=== PATIENT | female | born 1950 | race Caucasian/White ===

== ENCOUNTER 2017-07-15 10:06 | Observation (INO) | payer OTHER ==
[~2017-07-15] VITALS: Ht 167.6 cm; Wt 66.2 kg
[~2017-07-15 10:06] MED LIST: OMEP20CA74 PO; TRAM50TA2 PO
[2017-07-15 10:50] LABS: Basophils # (auto) 0.1 uL; Eosinophils # (auto) 0.1 uL; Eosinophils % (auto) 1.5 % (0.0-7.0); Hematocrit 29.7 % (36.0-46.0); Hemoglobin 10.3 g/dL (12.2-16.2); Lymphocytes # (auto) 1.7 uL; Lymphocytes % (auto) 24.2 % (10.0-50.0); Mean Corpuscular Hemoglobin 31.8 pg (28.0-32.0); Mean Corpuscular Hgb Conc. 34.7 g/dL (32.0-36.0); Mean Corpuscular Volume 91.9 fL (80.0-100.0); Mean Platelet Volume 6.7 fL (6.9-10.8); Monocytes # (auto) 0.7 uL; Monocytes % (auto) 10.1 % (0.0-12.0); Neutrophils # (auto) 4.4 uL; Neutrophils % (auto) 63.2 % (37.0-80.0); Platelet Count (auto) 188 10^3/uL (140-450); Red Cell Distribution Width 12.9 % (11.8-14.3)
[2017-07-15] MEDS ORDERED: SODIUM CHLORIDE 0.9% 1,000 ML IV ONE ×2 (11:06→12:15)
[2017-07-15] MEDS ORDERED: ONDANSETRON ODT 4 MG TAB PO ONE (11:15)
[2017-07-15 11:19] LABS: Albumin 3.2 g/dL (3.4-5.0); BUN/Creatinine Ratio 70.3; Bilirubin, Total 0.6 mg/dL (0.2-1.0); Calcium 7.6 mg/dL (8.5-10.1); Potassium 4.6 mmol/L (3.5-5.1); Total Protein 6.7 g/dL (6.4-8.2)
[2017-07-15 12:16] LABS: Magnesium 2.3 mg/dL (1.6-2.6)
[2017-07-15 12:26] LABS: B-Type Natriuretic Peptide 26.05 pg/mL (0-100)
[2017-07-15 12:49] LABS: Temperature: 23.5 C (20.0-25.0)
[2017-07-15 14:17] VITALS: BP 109/63
[2017-07-15] MEDS ORDERED: ACETAMINOPHEN 500 MG TAB PO ONE (14:22)
[2017-07-15 15:01] LABS: Urine Bilirubin Negative (Negative); Urine Blood Negative /uL (Negative); Urine Color Yellow (Yellow); Urine Glucose Normal (Normal); Urine Ketone Negative (Negative); Urine Nitrite Negative (Negative); Urine RBC 1 /hpf (0 - 4); Urine Squamous Epithelial Cell FEW /hpf (<5); Urine Urobilinogen Normal (Negative); Urine pH 7.5 (5.0-8.0)
== END 2017-07-15 14:34 | disposition home or self-care (01) | DRG 552 ==
LOC: EDBD 10:06 → ER 10:06 → OVERFLOW 11:08 → ER 14:34
PROVIDERS: ADMIT Family Medicine; ATTEND Family Medicine
DX: M54.2 Cervicalgia (principal); J44.9 Chronic obstructive pulmonary disease, unspecified; E11.9 Type 2 diabetes mellitus without complications; G89.29 Other chronic pain; M54.9 Dorsalgia, unspecified; E86.0 Dehydration; F17.210 Nicotine dependence, cigarettes, uncomplicated; I10 Essential (primary) hypertension; R11.2 Nausea with vomiting, unspecified
CPT/HCPCS: 36415; 71020; 80053; 81001; 83735; 83880; 84484; 85025; 85379; 93005; 94761; 96360; 96361; 99285; G0378; Q0162

== ENCOUNTER 2021-01-07 10:38 | Emergency (ER) | payer OTHER ==
[~2021-01-07] VITALS: Ht 167.6 cm; Wt 72.6 kg
[~2021-01-07 10:38] MED LIST changes: +ACET325T10 PO; +DOCU-94 PO; +FER325T PO; -OMEP20CA74 PO; +PANT40T PO
[2021-01-07 10:40] VITALS: BP 156/81
[2021-01-07] MEDS ORDERED: traMADol HCL 50 MG TAB PO ONE (12:15)
[2021-01-07 12:53] LABS: Basophils # (auto) 0 10 ^3/uL (0-0.2); Basophils % (auto) 0.4 % (0.0-2.0); Eosinophils # (auto) 0.1 10 ^3/uL (0-0.8); Eosinophils % (auto) 1.6 % (0.0-7.0); Hematocrit 42.4 % (36.0-46.0); Hemoglobin 14.5 g/dL (12.2-16.2); Lymphocytes # (auto) 1.6 10 ^3/uL (0.4-5.4); Lymphocytes % (auto) 25.6 % (10.0-50.0); Mean Corpuscular Hemoglobin 31.2 pg (28.0-32.0); Mean Corpuscular Hgb Conc. 34.1 g/dL (32.0-36.0); Mean Corpuscular Volume 91.5 fL (80.0-100.0); Monocytes % (auto) 16.7 % (0.0-12.0); Neutrophils # (auto) 3.4 10 ^3/uL (1.6-8.6); Neutrophils % (auto) 55.7 % (37.0-80.0); Nucleated Red Blood Cells % 0.1 %; Platelet Count (auto) 138 10^3/uL (140-450); Red Blood Cells 4.63 10^6/uL (4.0-5.20); Red Cell Distribution Width 12.6 % (11.8-14.3); White Blood Cell 6.1 10^3/uL (4.4-10.8)
[2021-01-07 12:57] LABS: Urine Bacteria NONE SEEN /hpf (None Seen); Urine Blood Negative /uL (Negative); Urine Mucus FEW (None Seen); Urine Specific Gravity 1.024 (1.001-1.035); Urine WBC 30 /hpf (0 - 5)
[2021-01-07 13:15] LABS: Albumin 4.1 g/dL (3.4-5.0); Calcium 9.2 mg/dL (8.5-10.1); Potassium 3.7 mmol/L (3.5-5.1)
[2021-01-07 13:18] LABS: BUN/Creatinine Ratio 18.6; Bilirubin, Total 0.7 mg/dL (0.2-1.0); Total Protein 7.9 g/dL (6.4-8.2)
[2021-01-07] MEDS ORDERED: IOHEXOL 300 MG/ML 100ML BOTTLE IJ ONE (13:29)
== END 2021-01-07 14:42 | disposition home or self-care (01) ==
LOC: ER 10:38
DX: S20.221A Contusion of right back wall of thorax, initial encounter (principal); S20.211A Contusion of right front wall of thorax, initial encounter; N39.0 Urinary tract infection, site not specified; R10.84 Generalized abdominal pain; M54.2 Cervicalgia; M54.5 Low back pain; J44.9 Chronic obstructive pulmonary disease, unspecified; E11.9 Type 2 diabetes mellitus without complications; I10 Essential (primary) hypertension; F17.200 Nicotine dependence, unspecified, uncomplicated; F10.20 Alcohol dependence, uncomplicated; Z79.899 Other long term (current) drug therapy; Y90.9 Presence of alcohol in blood, level not specified; W01.0XXA Fall on same level from slipping, tripping and stumbling without subsequent striking against object, initial encounter; Y93.89 Activity, other specified; Y92.091 Bathroom in other non-institutional residence as the place of occurrence of the external cause; Y99.8 Other external cause status
CPT/HCPCS: 36415; 71260; 74177; 80053; 81001; 85025; 99285; Q9967; 93005

== ENCOUNTER 2023-04-16 14:07 | Emergency (ER) | payer MEDICAID, OTHER ==
[~2023-04-16] VITALS: Ht 160 cm; Wt 85.0 kg
[~2023-04-16 14:07] MED LIST changes: +ACET-1882 PO; -ACET325T10 PO
[2023-04-16] MEDS ORDERED: KETOROLAC TROMETH 30 MG/ML 1ML VIAL IV ONE (14:30)
[2023-04-16] MEDS ORDERED: ONDANSETRON HCL 4 MG/2 ML VIAL IV ONE (14:30)
[2023-04-16 14:55] LABS: Basophils # (auto) 0 10 ^3/uL (0-0.2); Basophils % (auto) 0.3 % (0.0-2.0); Eosinophils # (auto) 0.2 10 ^3/uL (0-0.8); Eosinophils % (auto) 2.7 % (0.0-7.0); Hematocrit 46.6 % (36.0-46.0); Hemoglobin 15.9 g/dL (12.2-16.2); Lymphocytes # (auto) 1.9 10 ^3/uL (0.4-5.4); Lymphocytes % (auto) 25.8 % (10.0-50.0); Mean Corpuscular Hemoglobin 31.5 pg (28.0-32.0); Mean Corpuscular Hgb Conc. 34.2 g/dL (32.0-36.0); Mean Corpuscular Volume 91.9 fL (80.0-100.0); Monocytes # (auto) 0.7 10 ^3/uL (0-1.3); Monocytes % (auto) 9.5 % (0.0-12.0); Neutrophils # (auto) 4.5 10 ^3/uL (1.6-8.6); Neutrophils % (auto) 61.7 % (37.0-80.0); Nucleated Red Blood Cells % 0.2 %; Red Blood Cells 5.07 10^6/uL (4.0-5.20); Red Cell Distribution Width 13.7 % (11.8-14.3); White Blood Cell 7.3 10^3/uL (4.4-10.8)
[2023-04-16 15:26] LABS: Albumin 4.3 g/dL (3.4-5.0); Calcium 9.4 mg/dL (8.5-10.1); Potassium 4.4 mmol/L (3.5-5.1)
[2023-04-16 15:30] LABS: BUN/Creatinine Ratio 6.8 (10.0-20.0); Bilirubin, Total 0.7 mg/dL (0.2-1.0)
[2023-04-16] MEDS ORDERED: IOHEXOL 300 MG/ML 100ML BOTTLE IJ ONE (15:45)
[2023-04-16 18:19] VITALS: TEMP 97.7
[2023-04-16 19:52] VITALS: BP 148/80; PULSE 92; RESP 20; O2SAT 96
[2023-04-16 21:23] LABS: Urine Bacteria NONE SEEN /hpf (None Seen); Urine WBC 13 /hpf (0 - 5)
[2023-04-16 21:27] LABS: Urine Clarity CLEAR (Clear); Urine Color Straw (Yellow)
[2023-04-16 21:28] LABS: Urine Blood Negative /uL (Negative); Urine Protein, UAD Trace (Negative); Urine Urobilinogen Normal (Negative); Urine pH 6 (5.0-8.0)
[2023-04-16] MEDS ORDERED: DICY10CA PO (21:30)
== END 2023-04-16 22:00 | disposition home or self-care (01) ==
LOC: EDBD 14:07 → ER 14:10
DX: K57.30 Diverticulosis of large intestine without perforation or abscess without bleeding (principal); J44.9 Chronic obstructive pulmonary disease, unspecified; E11.9 Type 2 diabetes mellitus without complications; I10 Essential (primary) hypertension; F10.90 Alcohol use, unspecified, uncomplicated; F17.210 Nicotine dependence, cigarettes, uncomplicated; Z79.899 Other long term (current) drug therapy
CPT/HCPCS: 36415; 74177; 80053; 81001; 83605; 83690; 84484; 85025; 96374; 96375; 99285; J1885; J2405; Q9967

== ENCOUNTER 2023-11-06 18:57 | Inpatient (IN) | payer OTHER ==
[~2023-11-06] VITALS: Ht 167.6 cm; Wt 84.0 kg
[~2023-11-06 18:57] MED LIST changes: +DICY10CA PO
[2023-11-06 19:56] LABS: Basophils # (auto) 0 10 ^3/uL (0-0.2); Basophils % (auto) 0.3 % (0.0-2.0); Eosinophils # (auto) 0 10 ^3/uL (0-0.8); Hematocrit 44.7 % (36.0-46.0); Lymphocytes % (auto) 7.5 % (10.0-50.0); Mean Corpuscular Hgb Conc. 33.7 g/dL (32.0-36.0); Mean Corpuscular Volume 94.9 fL (80.0-100.0); Monocytes # (auto) 1.1 10 ^3/uL (0-1.3); Monocytes % (auto) 8.2 % (0.0-12.0); Neutrophils # (auto) 11.5 10 ^3/uL (1.6-8.6); Nucleated Red Blood Cells % 0.1 %; Red Cell Distribution Width 12.4 % (11.8-14.3); White Blood Cell 13.7 10^3/uL (4.4-10.8)
[2023-11-06 20:00] VITALS: O2SAT 92
[2023-11-06 20:12] LABS: Alanine Aminotransferase 42 U/L (7-40); Albumin 4.3 g/dL (3.2-4.8); Alkaline Phosphatase 86 U/L (46-116); Anion Gap 14 (5-15); Aspartate Aminotransferase 56 U/L (13-40); BUN/Creatinine Ratio 11.5 (10.0-20.0); Bilirubin, Total 0.6 mg/dL (0.2-1.0); Blood Urea Nitrogen 7 mg/dL (9-23); Calcium 8.7 mg/dL (8.7-10.4); Carbon Dioxide 16 mmol/L (20-30); Chloride 104 mmol/L (98-107); Glucose 94 mg/dL (74-106); Potassium 4.4 mmol/L (3.5-5.1); Sodium 134 mmol/L (136-145); Total Protein 7.3 g/dL (5.7-8.2)
[2023-11-06 20:21] LABS: INR 1.01 (0.9-1.15); Partial Thromboplastin Time 27.2 SEC (24.5-34.5); Prothrombin Time 10.6 sec (9.3-11.8)
[2023-11-06] MEDS: traMADol HCL 50 MG TAB PO ONE (20:42)
[2023-11-06] MEDS: ONDANSETRON HCL 4 MG/2 ML VIAL IV ONE (20:52)
[2023-11-06] MEDS: MORPHINE SULFATE INJ 2 MG/ml SYRG IV ONE (20:53)
[2023-11-06] MEDS: SODIUM CHLORIDE 0.9% 1,000 ML IV ONE ×2 (21:56→22:00)
[2023-11-06] MEDS: HYDROmorphone HCL 2 MG/ML VL/or syr IV ONE ×2 (22:00→23:32)
[2023-11-07] VITALS (11 sets, daily range): BP systolic 145–160; BP diastolic 69–96; PULSE 97–118; RESP 16–20; TEMP 97.7–98.4; O2SAT 92–96
[2023-11-07] MEDS ORDERED: ACETAMINOPHEN 325 MG TAB PO PRN (00:45)
[2023-11-07] MEDS: ENOXAPARIN SOD 40 MG/0.4 ML SYRINGE SC SCH (01:29)
[2023-11-07 01:31] LABS: Urine Bacteria NONE SEEN /hpf (None Seen); Urine Blood TRACE /uL (Negative); Urine Clarity Clear (Clear); Urine Color Colorless (Yellow); Urine Hyaline Cast FEW /lpf (0 - 2); Urine Protein, UAD TRACE (Negative); Urine Specific Gravity 1.015 (1.001-1.035); Urine Urobilinogen Normal (Negative); Urine WBC 1 /hpf (0 - 5); Urine pH 5.5 (5.0-8.0)
[2023-11-07] MEDS: MORPHINE SULFATE INJ 2 MG/ml SYRG IV PRN ×2 (03:10→09:59)
[2023-11-07] MEDS: SODIUM CHLORIDE 0.9% 1,000 ML IV SCH (04:53)
[2023-11-07] MEDS: ONDANSETRON HCL 4 MG/2 ML VIAL IV PRN (04:56)
[2023-11-07 05:53] LABS: Amphetamine Screen, Urine Neg (NEGATIVE)
[2023-11-07 05:54] LABS: Barbiturate Scree,Urine Neg (NEGATIVE); Benzodiazephine Screen, Urine Neg (NEGATIVE); Cannabinoid Screen, Urine Neg (NEGATIVE); Cocaine Screen, Urine Neg (NEGATIVE); Opiate Scree,Urine Neg (NEGATIVE); Phencyclidine Screen, Urine Neg (NEGATIVE)
[2023-11-07] MEDS: LORazepam 2MG/ML-1ML VIAL IV PRN (06:20)
[2023-11-07] MEDS: HYDROcodone-ACET 5/325MG TAB PO PRN (16:32)
[2023-11-07] MEDS: FOLIC ACID 1 MG, MULTIPLE VITAMIN 10 ML, MAGNESIUM SULF SDV 50% 8 MEQ, THIAMINE INJ 100... INJ SCH (17:48)
[2023-11-07] MEDS: hydrALAZINE HCL 20 MG/ML VL IV PRN (21:21)
[2023-11-08] VITALS (14 sets, daily range): BP systolic 127–173; BP diastolic 68–90; PULSE 92–111; RESP 16–20; TEMP 97.8–98.5; O2SAT 92–95
[2023-11-08 06:02] LABS: Basophils # (auto) 0 10 ^3/uL (0-0.2); Basophils % (auto) 0.4 % (0.0-2.0); Eosinophils # (auto) 0 10 ^3/uL (0-0.8); Eosinophils % (auto) 0.2 % (0.0-7.0); Hematocrit 38.5 % (36.0-46.0); Hemoglobin 13.1 g/dL (12.2-16.2); Lymphocytes # (auto) 0.9 10 ^3/uL (0.4-5.4); Lymphocytes % (auto) 10.7 % (10.0-50.0); Mean Corpuscular Hemoglobin 32.1 pg (28.0-32.0); Mean Corpuscular Hgb Conc. 33.9 g/dL (32.0-36.0); Mean Corpuscular Volume 94.8 fL (80.0-100.0); Monocytes % (auto) 12.3 % (0.0-12.0); Neutrophils # (auto) 6.1 10 ^3/uL (1.6-8.6); Neutrophils % (auto) 76.4 % (37.0-80.0); Red Blood Cells 4.06 10^6/uL (4.0-5.20)
[2023-11-08 06:04] LABS: Chloride 109 mmol/L (98-107); Potassium 3.9 mmol/L (3.5-5.1); Sodium 137 mmol/L (136-145)
[2023-11-08 06:05] LABS: Anion Gap 5 (5-15); Calcium 8.3 mg/dL (8.5-10.1); Carbon Dioxide 23 mmol/L (20-30)
[2023-11-08 06:10] LABS: BUN/Creatinine Ratio 11.9 (10.0-20.0); Blood Urea Nitrogen 7 mg/dL (9-23); Glucose 115 mg/dL (74-106)
[2023-11-08] MEDS ORDERED: PANT40T PO (16:07)
[2023-11-08] MEDS ORDERED: ALBU108A5 INH (16:11)
[2023-11-08] MEDS ORDERED: FLUT1AER3 INH (16:11)
[2023-11-08] MEDS ORDERED: FLUT50SP28 EACHNOSTRI (16:11)
[2023-11-09] VITALS (13 sets, daily range): BP systolic 116–150; BP diastolic 56–85; PULSE 97–126; RESP 14–24; TEMP 97.4–98.4; O2SAT 92–99
[2023-11-09] MEDS ORDERED: fentaNYL CITRATE 100 MCG/2 ML VL ONE (07:10)
[2023-11-09] MEDS ORDERED: MIDAZOLAM HCL 2MG/2ML 2ml VIAL (1mg/ml) ONE (07:10)
[2023-11-09] MEDS ORDERED: KETAMINE 50mg/ML 10ml Vial 10 ML ONE (07:10)
[2023-11-09] MEDS ORDERED: PROPOFOL 10 MG/ML 20 ML IV ONE (07:11)
[2023-11-09] MEDS ORDERED: ONDANSETRON HCL 4 MG/2 ML VIAL ONE (07:11)
[2023-11-09] MEDS ORDERED: GLYCOPYRROLATE 0.2 MG/ML 1ML VIAL ONE (07:11)
[2023-11-09] MEDS ORDERED: PHENYLEPHRINE HCL 10 MG/ML VL ONE (07:11)
[2023-11-09] MEDS ORDERED: ePHEDrine SULFATE 50 MG/ML AMP ONE (07:11)
[2023-11-09] MEDS: VANCOMYCIN HCL 1000 MG VL ONE ×2 (09:15→10:29)
[2023-11-09] MEDS ORDERED: ONDANSETRON HCL 4 MG/2 ML VIAL IV PRN (09:45)
[2023-11-09] MEDS ORDERED: HYDROmorphone HCL 2 MG/ML VL/or syr IV PRN (09:45)
[2023-11-09] MEDS: ACCU-CHEK COMFORT CURVE STRIP VI ONE (10:29)
[2023-11-09] MEDS: ceFAZolin 2 GM/D5W50ml 50 ML IV ONE (10:29)
[2023-11-09] MEDS: FAMOTIDINE (10MG/ML) 2ML VL IV ONE (10:29)
[2023-11-09] MEDS: TRANEXAMIC ACID 20 ML ONE (10:29)
[2023-11-09] MEDS: TETRACAINE 1% INJ 2 ML VIAL IJ ONE (10:29)
[2023-11-09] MEDS ORDERED: ACETAMINOPHEN 325 MG TAB PO PRN (11:00)
[2023-11-09] MEDS ORDERED: DOCUSATE SOD 100 MG CAP PO PRN (11:00)
[2023-11-09] MEDS: DICYCLOMINE HCL 10 MG CAP PO SCH (11:54)
[2023-11-09] MEDS ORDERED: ALBUTEROL SULF HFA 90MCG INH 200DOSE IN SCH (12:00)
[2023-11-09] MEDS: SODIUM CHLORIDE 0.9% 1,000 ML IV SCH (12:03)
[2023-11-09] MEDS: ceFAZolin 2 GM/D5W50ml 50 ML IV SCH (13:41)
[2023-11-09] MEDS: HYDROcodone-ACET 10/325MG TAB PO PRN (13:54)
[2023-11-09] MEDS: IPRATROPIUM BROM 0.5 MG/2.5ML INH SOL NEB PRN (16:03)
[2023-11-09] MEDS: ALBUTEROL SULF 2.5 MG/0.5ML(0.5%) NEB SOLN NEB PRN (16:03)
[2023-11-09] MEDS: traMADol HCL 50 MG TAB PO PRN (17:20)
[2023-11-09] MEDS: FERROUS SULFATE 325mg EC TAB PO SCH (21:45)
[2023-11-10] VITALS (10 sets, daily range): BP systolic 107–130; BP diastolic 48–67; PULSE 87–109; RESP 17–20; TEMP 97.6–98.3; O2SAT 90–97
[2023-11-10 06:23] LABS: Basophils # (auto) 0 10 ^3/uL (0-0.2); Basophils % (auto) 0.4 % (0.0-2.0); Eosinophils # (auto) 0.2 10 ^3/uL (0-0.8); Eosinophils % (auto) 3.8 % (0.0-7.0); Hematocrit 31.3 % (36.0-46.0); Hemoglobin 10.7 g/dL (12.2-16.2); Lymphocytes # (auto) 0.8 10 ^3/uL (0.4-5.4); Lymphocytes % (auto) 11.8 % (10.0-50.0); Mean Corpuscular Hemoglobin 32.5 pg (28.0-32.0); Mean Corpuscular Hgb Conc. 34.2 g/dL (32.0-36.0); Mean Corpuscular Volume 95.1 fL (80.0-100.0); Monocytes # (auto) 1.1 10 ^3/uL (0-1.3); Monocytes % (auto) 17.1 % (0.0-12.0); Neutrophils # (auto) 4.3 10 ^3/uL (1.6-8.6); Neutrophils % (auto) 66.9 % (37.0-80.0); Red Blood Cells 3.29 10^6/uL (4.0-5.20); Red Cell Distribution Width 12.5 % (11.8-14.3); White Blood Cell 6.5 10^3/uL (4.4-10.8)
[2023-11-10 06:28] LABS: Chloride 104 mmol/L (98-107); Potassium 3.6 mmol/L (3.5-5.1); Sodium 133 mmol/L (136-145)
[2023-11-10 06:29] LABS: Anion Gap 4 (5-15); Carbon Dioxide 25 mmol/L (20-30)
[2023-11-10 06:34] LABS: Blood Urea Nitrogen 6 mg/dL (9-23); Glucose 106 mg/dL (74-106)
[2023-11-10] MEDS: PANTOPRAZOLE 40 MG TAB PO SCH (09:37)
[2023-11-10] MEDS: ENOXAPARIN SOD 40 MG/0.4 ML SYRINGE SC SCH (09:38)
[2023-11-10] MEDS: FLUTICASONE PROP NASAL SPR 0.05 % (50MCG) 16GM EACHNOSTRI SCH (10:00)
[2023-11-11] VITALS (13 sets, daily range): BP systolic 115–140; BP diastolic 58–65; PULSE 86–100; RESP 18–22; TEMP 97.7–98; O2SAT 93–100
[2023-11-12] VITALS (7 sets, daily range): BP systolic 118–145; BP diastolic 56–76; PULSE 85–100; RESP 20–30; TEMP 97.3–97.7; O2SAT 95–98
== END 2023-11-12 18:50 | DRG 522 ==
LOC: ER 18:57 → EDBD 18:57 → TELE 11-07 05:36 → TELE-EAST 11-07 08:56
PROVIDERS: ADMIT Nurse Practitioner Family; ATTEND Internal Medicine
PROC: 0SRR0J9 Replacement of Right Hip Joint, Femoral Surface with Synthetic Substitute, Cemented, Open Approach (ICD-10-PCS; principal; 2023-11-09 07:22)
DX: S72.001A Fracture of unspecified part of neck of right femur, initial encounter for closed fracture (principal); R55 Syncope and collapse; I10 Essential (primary) hypertension; F10.20 Alcohol dependence, uncomplicated; E11.9 Type 2 diabetes mellitus without complications; F17.210 Nicotine dependence, cigarettes, uncomplicated; J44.9 Chronic obstructive pulmonary disease, unspecified; W18.39XA Other fall on same level, initial encounter; Y93.89 Activity, other specified; Y92.098 Other place in other non-institutional residence as the place of occurrence of the external cause; Z85.028 Personal history of other malignant neoplasm of stomach; Z80.0 Family history of malignant neoplasm of digestive organs; Z82.49 Family history of ischemic heart disease and other diseases of the circulatory system
CPT/HCPCS: 36415; 70450; 70486; 71045; 71250; 72125; 72170; 73501; 73502; 73562; 74176; 80048; 80053; 80307; 80320; 81001; 82550; 82962; 83880; 84484; 85025; 85610; 85730; 93005; 93306; 93971; 94640; 96361; 96374; 96375; 96376; 97110; 97116; 97163; 97530; A4565; G0378; J2250; J2405; J2704; J3490